=== PATIENT | female | born 1950 | race Caucasian/White ===

== ENCOUNTER → 2019-08-02 11:15 | Outpatient (CLI) | payer MEDICARE, OTHER, SELFPAY | PROVIDERS: PCP Nurse Practitioner Primary Care; Referring Provider Internal Medicine Critical Care Medicine; Visit Provider Internal Medicine Critical Care Medicine | DX: G47.33 Obstructive sleep apnea (adult) (pediatric) (principal) | CPT/HCPCS: 98960; G0463 ==

== ENCOUNTER → 2019-08-08 14:03 | Outpatient (CLI) | payer MEDICARE, OTHER, SELFPAY ==
[2015-07-22 16:10] VITALS: BMI 36.3
--- NOTE | 2019-08-08 14:04 | ECHOCS_ITS ---
Reason For Study: DYSPNEA Procedure This was a 2D Doppler, Color Flow transthoracic echocardiogram. The study was technically difficult. Contrast injection was performed. Exam performed in department. Left Ventricle Normal LV size. Left ventricular systolic function is normal. The estimated ejection fraction is 65 %. No evidence for diastolic dysfunction. No regional wall motion abnormalities noted. Right Ventricle Normal RV size. Normal systolic function. Atria Normal left atrium. Normal right atrium. Bubble contrast study negative for right to left interatrial shunt. Mitral Valve There is no mitral annular calcification. Normal mitral valve. Mild (1+) mitral valve insufficiency. Tricuspid Valve Normal tricuspid valve. Mild tricuspid valve insufficiency. Right ventricular systolic pressure estimated to be 43 mmHg. Aortic Valve Trisinus/trileaflet aortic valve. Mild focal aortic valve calcification. Pulmonic Valve The pulmonic valve is not well visualized. Great Vessels Normal sized aortic root. Pericardium/Pleural No pericardial effusion. Medication 22 gauge I.V. with prn adaptor inserted into right arm. Diluted definity 3.0ml given slow IV push to enhance endocardial definition. MMode/2D Measurements & Calculations LVIDd: 4.5 cm IVSd: 0.89 cm Ao root diam: 3.5 cm LVIDs: 2.9 cm LVPWd: 0.94 cm RVDd: 3.4 cm FS: 35.4 % LAV(MOD-bp): 36.6 ml LVAd ap4: 27.9 cm2 SV(MOD-sp4): 58.9 ml LAV(MOD-bp) Indexed: 19.5 ml/m2 EDV(MOD-sp4): 85.7 ml LAV(MOD-sp2): 27.3 ml EDV(sp4-el): 87.9 ml LAV(MOD-sp4): 42.2 ml LVAs ap4: 13.7 cm2 ESV(MOD-sp4): 26.8 ml ESV(sp4-el): 26.9 ml EF(MOD-sp4): 68.7 % EF(sp4-el): 69.4 % SV(sp4-el): 61.0 ml LA A4 area: 17.4 cm2 LA dimension(2D): 3.7 cm RA A4 area: 13.7 cm2 Time Measurements MV dec time: 0.29 sec Doppler Measurements & Calculations MV E max declan: 107.6 cm/sec Lat Peak E' Declan: 9.0 cm/sec Med Peak E' Declan: 9.2 cm/sec MV A max declan: 86.9 cm/sec E/E' lat: 11.9 E/E' med: 11.7 MV E/A: 1.2 Ao V2 max: 169.7 cm/sec LV V1 max: 112.2 cm/sec PA V2 max: 98.6 cm/sec Ao max P.5 mmHg LV V1 max P.0 mmHg TR max declan: 260.9 cm/sec TR max P.6 mmHg Interpretation Summary The study was technically difficult. Contrast injection was performed. Left ventricular systolic function is normal. The estimated ejection fraction is 65 %. Mild (1+) mitral valve insufficiency. Mild tricuspid valve insufficiency. Mild focal aortic valve calcification. Right ventricular systolic pressure estimated to be 43 mmHg. No evidence for diastolic dysfunction. Ordering Physician: Navin Blanca Referring Physician: CHINO HUI Performed By: Bianca Torres, STEPHANIECS, RVT
== END ==
PROVIDERS: PCP Nurse Practitioner Primary Care; Referring Provider Internal Medicine Critical Care Medicine; Visit Provider Internal Medicine Critical Care Medicine
DX: R60.0 Localized edema (principal)
CPT/HCPCS: 93306; Q9957; A4216; C8929

== ENCOUNTER 2019-10-16 09:15 | Outpatient (RCR) | payer MEDICARE, OTHER, SELFPAY ==
[2019-10-16 09:16] VITALS: BP 107/58; PULSE 73; RESP 20; TEMP 36.6; BMI 37.3
--- NOTE | 2019-10-16 12:00 | PCM.WC.HP ---
(1) Leg swelling Status: Chronic Current Visit: Yes Code(s): M79.89 - Other specified soft tissue disorders (2) Leg edema Status: Chronic Current Visit: Yes Code(s): R60.0 - Localized edema (3) Traumatic open wound of left lower leg Status: Chronic Current Visit: Yes Qualifiers: Encounter type: initial encounter Qualified Code(s): S81.802A - Unspecified open wound, left lower leg, initial encounter Code(s): S81.802A - Unspecified open wound, left lower leg, initial encounter (4) Obesity (BMI 30-39.9) Status: Chronic Current Visit: No Code(s): E66.9 - Obesity, unspecified (5) Hyperlipidemia Status: Chronic Current Visit: No Code(s): E78.5 - Hyperlipidemia, unspecified (6) Hypothyroidism Status: Chronic Current Visit: No Code(s): E03.9 - Hypothyroidism, unspecified (7) Fecal incontinence Status: Chronic Current Visit: No Code(s): R15.9 - Full incontinence of feces (8) Urinary incontinence Status: Chronic Current Visit: No Code(s): R32 - Unspecified urinary incontinence (9) Osteoarthritis Status: Chronic Current Visit: No Code(s): M19.90 - Unspecified osteoarthritis, unspecified site (10) Non-healing wound of left lower extremity Status: Chronic Current Visit: Yes Code(s): S81.802A - Unspecified open wound, left lower leg, initial encounter (11) GARY (obstructive sleep apnea) Status: Chronic Current Visit: No Code(s): G47.33 - Obstructive sleep apnea (adult) (pediatric) (12) Asthma Status: Chronic Current Visit: No Qualifiers: Code(s): J45.909 - Unspecified asthma, uncomplicated History of Present Illness Date of Service: 10/16/19 Chief Complaint: Chronic, nonhealing traumatic wound of the left lower extremity History of Wound: This is a 69-year-old female who was in her normal state of health until July 26, 2019. While transporting tess of hay, the patient sustained a penetrating injury to her distal left lower extremity with a weed stick. The penetrating injury failed to heal, and has persisted, despite treatment by her primary care physician. She has been treated by several courses of oral antibiotics, including Keflex, clindamycin, and another course of Keflex. She has used antibiotic ointment topically. Despite these measures, the patient's wound has persisted, and failed to heal. Despite several courses of antibiotics, cultures have not been obtained. The patient admits to chronic swelling in her lower extremities. She sleeps on a flat surface at night. She claims to be active. She has no history of thrombophlebitis. Past Medical History Past Medical History: Chronic Problems (Last Reviewed 07/25/19 @ 09:46 by Saige Carias) Leg swelling (Chronic) Leg edema (Chronic) Traumatic open wound of left lower leg (Chronic) Obesity (BMI 30-39.9) (Chronic) Hyperlipidemia (Chronic) Hypothyroidism (Chronic) Fecal incontinence (Chronic) Urinary incontinence (Chronic) Osteoarthritis (Chronic) Non-healing wound of left lower extremity (Chronic) GARY (obstructive sleep apnea) (Chronic) Edema (Chronic) Asthma (Chronic) Past Medical History: The patient denies a history of myocardial infarction, hypertension, diabetes mellitus, cerebrovascular accident, and renal disease. She does have a history of osteoarthritis, asthma, hyperlipidemia, hypothyroidism, obstructive sleep apnea, urinary incontinence, and fecal incontinence. Surgical History: cholecystectomy, - - Patient has a history of cholecystectomy. She is undergone left total knee replacement in the past. A right partial knee replacement has also been performed in the past. The patient is a G3, P3 Ab0. Allergies/Adverse Reactions: Allergies isoniazid Allergy (Verified 07/25/19 09:44) Rash sulfamethoxazole [From Bactrim] Allergy (Verified 07/25/19 09:44) Rash trimethoprim [From Bactrim] Allergy (Verified 07/25/19 09:44) Rash Home Medications: Ambulatory Orders Medication Instructions Recorded Gluc Joyce/Chondro Joyce A/Vit C/Mn 1 ea PO DAILY 07/15/15 [Glucosamine-Chondroitin Cap] Hydrochlorothiazide [Hctz] 25 mg PO DAILY 07/15/15 Levothyroxine [Synthroid] 125 mcg PO DAILY 07/15/15 Naproxen [Naprosyn] 250 mg PO BID 07/15/15 Aspirin E.C. [Ecotrin] 81 mg PO DAILY@0800 #0 07/24/15 Fish Oil/Dha/Epa [Fish Oil 1,200 1 ea PO DAILY #0 07/24/15 mg Fish Oil] [place]-3 Fatty Acids [Fish Oil] 1,200 mg PO DAILY #0 07/24/15 albuterol sulfate 90 mcg/actuation 2 puff INHALATION Q6H PRN 06/18/19 aerosol inhaler cinnamon bark 500 mg capsule 1,000 mg PO DAILY cap 07/25/19 fluticasone propionate 50 1 spray INTRANASAL DAILY 07/25/19 mcg/actuation nasal spray,suspension budesonide-formoterol HFA 160 2 inh INHALATION BID #30.6 g 10/05/19 mcg-4.5 mcg/actuation aerosol inhaler Social History: The patient is . She is a retired registered nurse. She denies the use of alcohol and tobacco products. Lives: Spouse/ Significant Other Smoking Status: Never smoker Tobacco Use: Non-smoker Alcohol: None Drugs: None Review of Systems Constitutional: Denies: Chills, Fever, Weight Change Eyes: Denies: Pain, Vision Change HEENT: Denies: Difficulty Hearing, Difficulty Swallowing, Sinus Congestion Cardiovascular: Denies: Chest Pain, Palpitations Respiratory: Denies: Cough, Shortness of Breath Gastrointestinal: Denies: Diarrhea, Nausea, Vomiting Genitourinary: Denies: Dysuria, Hematuria Endocrine: Denies: Heat/ Cold Intolerance, Polydipsia, Polyuria Hematologic/ Lymphatic: Denies: Easy Bruising, Easy Bleeding - Physical Exam Vital Signs Temp Pulse Resp BP 97.8 F 73 20 H 107/58 L 10/16/19 09:16 10/16/19 09:16 10/16/19 09:16 10/16/19 09:16 General: Alert, Oriented x3, Cooperative, No apparent distress, Well developed, Well nourished, - - Patient is mildly obese. HEENT: Atraumatic, PERRLA, EOMI, Normocephalic Oral: Moist Mucosa Neck: Supple, No JVD, Negative Carotid Bruits, Negative Hepatojugular Reflux, No Nodes, No Nuchal Rigidity, Trachea Midline Lungs: Clear to auscultation, Normal air movement, No rhonchi, No wheeze, No rales Cardiovascular: Regular rate, Regular Rhythm, Normal S1, Normal S2, No murmurs Abdomen: Soft, Non Tender, Non-Distended, Obese Extremities: No clubbing, No cyanosis, No Calf Tenderness, - - Slight swelling and edema is noted in the patient's lower extremities. A traumatic wound is noted on the left anterolateral tibial surface. Dimensions are documented elsewhere. Slight erythema surrounds the wound. Bioburden and nonviable tissue are present. Wound Measurements and Assessment WC - Nurse 1 - General Ulcer Measurement Start: 10/16/19 09:16 Freq: Status: Active Protocol: Activity Type Activity Date Activity User E-Sign Co-Sign Detail Recorded Client Recorded Date Recorded By Document 10/16/19 09:16 DL [id number] 10/16/19 09:35 DL 10/16/19 09:16 Wound Center Nurse 1 [Ulcer Assessment] #1 LLE Lat -Current Size (cm) - Length 0.5 -Current Size (cm) - Width 0.6 -Current Size (cm) - Depth 0.1 -Total Square Cm 0.30 -Photo Taken Yes -Classification - Thickness Unclassifiable (Eschar Covered ) -Exudate Amt None Present -Wound Margin Thickened -Granulation Amt None Present (0 %) -Necrosis Amt Small (1-33%) -Necrotic Tissue Type Adherent Slough -Structure Exposed N/A -Texture (Marilu-wound Skin Appearance) Localized Edema ,Scarring,Rash -Moisture (Marilu-wound Skin Appearance No Abnormality ) -Color (Marilu-wound Skin Appearance) No Abnormality, Rubor -Temperature (Marilu-wound Skin No Abnormality Appearance) (Pt Warm) -Tenderness on Palpation (Marilu-wound No Skin Appearance) -Ulcer Cleansing Rinsed/ Irrigated with Saline -Foul Odor after Cleansing No -Anesthetic Used 4% Lidocaine Solution [Edema Assessment] -Right Calf (cm) 40 -Right Ankle (cm) 24.5 -Left Calf (cm) 39.5 -Left Ankle (cm) 24 - Nurse 2 - General Ulcer CM Notes Start: 10/16/19 09:16 Freq: Status: Active Protocol: Activity Type Activity Date Activity User E-Sign Co-Sign Detail Recorded Client Recorded Date Recorded By Document 10/16/19 10:38 PL [id number] 10/16/19 10:39 PL 10/16/19 10:38 Wound Center Nurse 2 [Procedure/Treatment] #1 LLE Lat -Time 10:03 -Correct Patient Yes -Correct Side, Site, Position Yes -Correct Procedure Yes -Procedure Performed Yes -Type of Procedure Debridement -Clinical Debridement Subcutaneous -Tissue Removed Subcutaneous -Post Debridement (cm) - Length 0.5 -Post Debridement (cm) - Width 1 -Post Debridement (cm) - Depth 0.2 -Total Square (Post) (cm) 0.5 -Area of Debridement (cm) - Length 0.5 -Area of Debridement (cm) - Width 1 -Total Square (Area) (cm) 0.5 -Tunneling No -Undermining/Tunneling No -Wound/Ulcer Outcome Not Healed -Bioengineered Tissue No -Debridement - Subq, 1st 20sq cm Yes [See Physician Procedure note for Specifics] Pain Scale: 0-10 Numeric [Pain] -Is Patient Pain Free? Yes - Nurse 3 - General Ulcer D/C NN Start: 10/16/19 09:16 Freq: Status: Active Protocol: Activity Type Activity Date Activity User E-Sign Co-Sign Detail Recorded Client Recorded Date Recorded By Document 10/16/19 10:26 DL [id number] 10/16/19 10:33 DL 10/16/19 10:26 Wound Care Nurse 3 [Wound Dressing] #1 LLE Lat -Ulcer Cleansing Rinsed/ Irrigated with Saline -Foul Odor after Cleansing No -Primary Dressing Applied Aquacel AG 4x4 -Primary Dressing Covered/Secured Dry Gauze & with Roll Gauze, Secured with Tape -Aquacel AG 4x4 1 [Compression Applied] Left -Tubular Bandage Single Layer -Size of Tubigrip Used Size D -Size D ($) 1 [Post Procedure Tolerated] -Treatment Response Procedure Tolerated Well Pain Scale: 0-10 Numeric [Pain] -Is Patient Pain Free? Yes - Visit Discharge [Visit Discharge Information] -Discharge Condition Stable -Ambulatory Status Ambulatory -Transportation Private Auto Musculoskeletal: No Muscle Wasting Neurological: Cranial nerves II-XII grossly intact, Neuro grossly intact Psych/Mental Status: Normal Affect, Appropriate, Alert and oriented to time, place, person, mood and affect Debridement Note Post-Debridement Measurements/Treatment WC - Nurse 2 - General Ulcer CM Notes Start: 10/16/19 09:16 Freq: Status: Active Protocol: Activity Type Activity Date Activity User E-Sign Co-Sign Detail Recorded Client Recorded Date Recorded By Document 10/16/19 10:38 PL [id number] 10/16/19 10:39 PL 10/16/19 10:38 Wound Center Nurse 2 #1 LLE Lat -Time 10:03 -Correct Patient Yes -Correct Side, Site, Position Yes -Correct Procedure Yes -Procedure Performed Yes -Type of Procedure Debridement -Clinical Debridement Subcutaneous -Tissue Removed Subcutaneous -Post Debridement (cm) - Length 0.5 -Post Debridement (cm) - Width 1 -Post Debridement (cm) - Depth 0.2 -Total Square (Post) (cm) 0.5 -Area of Debridement (cm) - Length 0.5 -Area of Debridement (cm) - Width 1 -Total Square (Area) (cm) 0.5 -Tunneling No -Undermining/Tunneling No -Wound/Ulcer Outcome Not Healed -Bioengineered Tissue No -Debridement - Subq, 1st 20sq cm Yes Pain Scale: 0-10 Numeric Is Patient Pain Free? Yes WC - Nurse 3 - General Ulcer D/C NN Start: 10/16/19 09:16 Freq: Status: Active Protocol: Activity Type Activity Date Activity User E-Sign Co-Sign Detail Recorded Client Recorded Date Recorded By Document 10/16/19 10:26 DL [id number] 10/16/19 10:33 DL 10/16/19 10:26 Wound Care Nurse 3 #1 LLE Lat -Ulcer Cleansing Rinsed/ Irrigated with Saline -Foul Odor after Cleansing No -Primary Dressing Applied Aquacel AG 4x4 -Primary Dressing Covered/Secured with Dry Gauze & Roll Gauze, Secured with Tape -Aquacel AG 4x4 1 Left -Tubular Bandage Single Layer -Size of Tubigrip Used Size D -Size D ($) 1 Treatment Response Procedure Tolerated Well Pain Scale: 0-10 Numeric Is Patient Pain Free? Yes WC - Visit Discharge Discharge Condition Stable Ambulatory Status Ambulatory Transportation Private Auto Laterality: Left - Anterolateral tibial surface. Type of Debridement: Excisional debridement Anesthesia Used: 5% Lidocaine Gel Depth: Down to and including healthy tissue, in the subcutaneous layer Percentage of wound debrided: 100 Instrument Used: 3mm curette Tissue Removed: Bioburden and nonviable tissue Severity: Fat Layer Exposed Amount of bleeding with debridement: Mild Bleeding Controlled with: Compression and gauze Patient tolerated procedure well Following excisional debridement, swab cultures for both aerobic and anaerobic bacterial growth were obtained. Cultures were obtained due to the erythema about the wound itself, and concerns as to possible bacterial infection. Assessment/Plan Active Problems (Last Reviewed 07/25/19 @ 09:46 by Saige Carias) Leg swelling (Chronic) Leg edema (Chronic) Traumatic open wound of left lower leg (Chronic) Non-healing wound of left lower extremity (Chronic) Assessment: This is a 69-year-old female who presents with a traumatic wound on the edwige-lateral tibial surface of the left lower extremity. Her injury occurred on July 26, 2019, and has failed to heal, despite measures recommended by her primary care physician. She also has multiple pre-existing medical problems, which are discussed above. She has a history of chronic swelling and edema in her lower extremities as well. Plan: With respect to the chronic swelling and edema in the patient's lower extremities, conservative treatment measures are to be implemented. The patient sleeps on a flat mattress at night, a practice which is to be continued. Additionally, she is to elevate her legs during daytime hours as well. Leg elevation is to be to heart level, or higher. This is to be implemented as much as possible during the daytime. She has been advised to refrain from prolonged periods of idle sitting. Activity has been encouraged. Weight loss has also been recommended. We are to implement compression by means of Tubigrip's, which will be worn on a daily basis. The patient has had recent laboratory studies, which will be requested and obtained from [facility]. We will arrange for the patient undergo a noninvasive lower extremity arterial study, to assess arterial circulation in the lower extremities. Swab cultures have been obtained, and we will await results. Antibiotics will be prescribed, if appropriate. We are to implement the use of AquaCel Silver topically. This will be applied by the patient on a daily basis. The patient has been instructed in the appropriate means of application. The patient is to return in 1 week for reassessment. Serial debridements are anticipated. Patient is not a smoker. Influenza vaccine was not administered today. Patient stands 5 feet 2 inches tall. She weighs 197 pounds. Her BMI is 36, which places her in a class II obesity category. Weight loss has been recommended, and collaboration with her primary care physician has been advised.
== END 2019-10-22 23:59 ==
LOC: WC 09:15
PROVIDERS: PCP Nurse Practitioner Primary Care; Visit Provider Surgery
DX: S81.832A Puncture wound without foreign body, left lower leg, initial encounter (principal); W26.8XXA Contact with other sharp object(s), not elsewhere classified, initial encounter; Y93.89 Activity, other specified; Y92.9 Unspecified place or not applicable; G47.33 Obstructive sleep apnea (adult) (pediatric); J45.909 Unspecified asthma, uncomplicated; M19.90 Unspecified osteoarthritis, unspecified site; M79.89 Other specified soft tissue disorders; R60.0 Localized edema; E66.9 Obesity, unspecified; E78.5 Hyperlipidemia, unspecified; R15.9 Full incontinence of feces; E03.9 Hypothyroidism, unspecified; Z79.82 Long term (current) use of aspirin; Z79.899 Other long term (current) drug therapy; Z68.36 Body mass index [BMI] 36.0-36.9, adult
CPT/HCPCS: 11042; 87070; 87075; 87205; 99203; G0463

== ENCOUNTER 2019-11-06 13:00 | Outpatient (RCR) | payer MEDICARE, OTHER, SELFPAY ==
[2019-10-23 00:51] VITALS: BP 107/58; PULSE 73; RESP 20; TEMP 36.6
[2019-10-23 11:53] VITALS: BP 114/51; PULSE 80; RESP 16; TEMP 36.1; BMI 37.3
--- NOTE | 2019-10-23 12:15 | HP.PCM_ITS ---
(1) Leg swelling Status: Chronic Current Visit: Yes Code(s): M79.89 - Other specified soft tissue disorders (2) Leg edema Status: Chronic Current Visit: Yes Code(s): R60.0 - Localized edema (3) Traumatic open wound of left lower leg Status: Chronic Current Visit: Yes Qualifiers: Encounter type: subsequent encounter Qualified Code(s): S81.802D - Unspecified open wound, left lower leg, subsequent encounter Code(s): S81.802A - Unspecified open wound, left lower leg, initial encounter (4) Obesity (BMI 30-39.9) Status: Chronic Current Visit: No Code(s): E66.9 - Obesity, unspecified (5) Hyperlipidemia Status: Chronic Current Visit: No Code(s): E78.5 - Hyperlipidemia, unspecified (6) Hypothyroidism Status: Chronic Current Visit: No Code(s): E03.9 - Hypothyroidism, unspecified (7) Fecal incontinence Status: Chronic Current Visit: No Code(s): R15.9 - Full incontinence of feces (8) Urinary incontinence Status: Chronic Current Visit: No Code(s): R32 - Unspecified urinary incontinence (9) Osteoarthritis Status: Chronic Current Visit: No Code(s): M19.90 - Unspecified osteoarthritis, unspecified site (10) Non-healing wound of left lower extremity Status: Chronic Current Visit: Yes Code(s): S81.802A - Unspecified open wound, left lower leg, initial encounter (11) GARY (obstructive sleep apnea) Status: Chronic Current Visit: No Code(s): G47.33 - Obstructive sleep apnea (adult) (pediatric) (12) Edema Status: Chronic Current Visit: Yes Qualifiers: Code(s): R60.9 - Edema, unspecified (13) Asthma Status: Chronic Current Visit: No Qualifiers: Code(s): J45.909 - Unspecified asthma, uncomplicated History of Present Illness Date of Service: 10/23/19 Chief Complaint: Chronic, nonhealing traumatic wound of the left lower extremity History of Wound: This is a 69-year-old female who was in her normal state of health until July 26, 2019. While transporting tess of hay, the patient sustained a penetrating injury to her distal left lower extremity with a weed stick. The penetrating injury failed to heal, and has persisted, despite treatment by her primary care physician. She has been treated by several courses of oral antibiotics, including Keflex, clindamycin, and another course of Keflex. She has used antibiotic ointment topically. Despite these measures, the patient's wound has persisted, and failed to heal. Despite several courses of antibiotics, cultures have not been obtained. The patient admits to chronic swelling in her lower extremities. She sleeps on a flat surface at night. She claims to be active. She has no history of thrombophlebitis. Past Medical History Past Medical History: Chronic Problems (Last Reviewed 07/25/19 @ 09:46 by Saige Carias) Leg swelling (Chronic) Leg edema (Chronic) Traumatic open wound of left lower leg (Chronic) Obesity (BMI 30-39.9) (Chronic) Hyperlipidemia (Chronic) Hypothyroidism (Chronic) Fecal incontinence (Chronic) Urinary incontinence (Chronic) Osteoarthritis (Chronic) Non-healing wound of left lower extremity (Chronic) GARY (obstructive sleep apnea) (Chronic) Edema (Chronic) Asthma (Chronic) Surgical History: cholecystectomy, - - Patient has a history of cholecystectomy. She is undergone left total knee replacement in the past. A right partial knee replacement has also been performed in the past. The patient is a G3, P3 Ab0. Allergies/Adverse Reactions: Allergies isoniazid Allergy (Verified 07/25/19 09:44) Rash sulfamethoxazole [From Bactrim] Allergy (Verified 07/25/19 09:44) Rash trimethoprim [From Bactrim] Allergy (Verified 07/25/19 09:44) Rash Home Medications: Ambulatory Orders Medication Instructions Recorded Gluc Joyce/Chondro Joyce A/Vit C/Mn 1 ea PO DAILY 07/15/15 [Glucosamine-Chondroitin Cap] Hydrochlorothiazide [Hctz] 25 mg PO DAILY 07/15/15 Levothyroxine [Synthroid] 125 mcg PO DAILY 07/15/15 Naproxen [Naprosyn] 250 mg PO BID 07/15/15 Aspirin E.C. [Ecotrin] 81 mg PO DAILY@0800 #0 07/24/15 Fish Oil/Dha/Epa [Fish Oil 1,200 1 ea PO DAILY #0 07/24/15 mg Fish Oil] [place]-3 Fatty Acids [Fish Oil] 1,200 mg PO DAILY #0 07/24/15 albuterol sulfate 90 mcg/actuation 2 puff INHALATION Q6H PRN 06/18/19 aerosol inhaler cinnamon bark 500 mg capsule 1,000 mg PO DAILY cap 07/25/19 fluticasone propionate 50 1 spray INTRANASAL DAILY 07/25/19 mcg/actuation nasal spray,suspension budesonide-formoterol HFA 160 2 inh INHALATION BID #30.6 g 10/05/19 mcg-4.5 mcg/actuation aerosol inhaler Smoking Status: Never smoker Tobacco Use: Non-smoker Review of Systems Constitutional: Denies: Chills, Fever, Weight Change Eyes: Denies: Pain, Vision Change HEENT: Denies: Difficulty Hearing, Difficulty Swallowing, Sinus Congestion Cardiovascular: Denies: Chest Pain, Palpitations Respiratory: Denies: Cough, Shortness of Breath Gastrointestinal: Denies: Diarrhea, Nausea, Vomiting Genitourinary: Denies: Dysuria, Hematuria Endocrine: Denies: Heat/ Cold Intolerance, Polydipsia, Polyuria Hematologic/ Lymphatic: Denies: Easy Bruising, Easy Bleeding - Physical Exam Vital Signs Temp Pulse Resp BP 97 F L 80 16 114/51 L 10/23/19 11:53 10/23/19 11:53 10/23/19 11:53 10/23/19 11:53 General: Alert, Oriented x3, Cooperative, No apparent distress, Well developed, Well nourished HEENT: Atraumatic, PERRLA, EOMI, Normocephalic Oral: Moist Mucosa Neck: No JVD Lungs: Normal air movement Abdomen: Non-Distended Extremities: No clubbing, No cyanosis, No Calf Tenderness, - - Only minimal edema and swelling is noted in the left lower extremity. The wound on the anterolateral tibial surface of the left lower extremity appears to be totally healed and epithelialized. There is slight erythema in the area, suspected to be due to a reaction to topical products. It is noted that her recent wound cultures are negative. Skin: No breakdown Wound Measurements and Assessment WC - Nurse 1 - General Ulcer Measurement Start: 10/23/19 11:51 Freq: Status: Active Protocol: Activity Type Activity Date Activity User E-Sign Co-Sign Detail Recorded Client Recorded Date Recorded By Document 10/23/19 11:53 [facility] [id number] 10/23/19 12:00 [facility] 10/23/19 11:53 Wound Center Nurse 1 [Ulcer Assessment] #1 LLE Lat -Combined with other wound No -Current Size (cm) - Length 0.1 -Current Size (cm) - Width 0.1 -Current Size (cm) - Depth 0.1 -Total Square Cm 0.01 -Photo Taken No -Epithelialization None Present -Tunneling No -Undermining/Tunneling No -Circular Undermining No -Exudate Amt None Present -Wound Margin Distinct, Outline Attached -Granulation Amt None Present (0 %) -Slough/Fibrin Yes -Necrosis Amt Large (67-100%) -Necrotic Tissue Type Adherent Slough -Texture (Marilu-wound Skin Appearance) Assessed -Moisture ([place]u-wound Skin Appearance Assessed ) -Color ([place]ilu-wound Skin Appearance) Assessed -Temperature ([place]-wound Skin No Abnormality Appearance) (Pt Warm) -Tenderness on Palpation ([place]-wound No Skin Appearance) -Ulcer Cleansing Rinsed/ Irrigated with Saline -Foul Odor after Cleansing No -Anesthetic Used 4% Lidocaine Solution [Edema Assessment] -Lower Limb Edema Present Yes -Left Calf (cm) 38.6 -Left Ankle (cm) 23.6 Musculoskeletal: No Muscle Wasting Neurological: Cranial nerves II-XII grossly intact, Neuro grossly intact Psych/Mental Status: Normal Affect, Appropriate, Alert and oriented to time, place, person, mood and affect Debridement Note No debridement was completed today - There appears to be no open wound or ulceration at this time. Assessment/Plan Active Problems (Last Reviewed 07/25/19 @ 09:46 by Saige Carias) Leg swelling (Chronic) Leg edema (Chronic) Traumatic open wound of left lower leg (Chronic) Non-healing wound of left lower extremity (Chronic) Edema (Chronic) Assessment: This is a 69-year-old female who presented with a traumatic wound on the edwige-lateral tibial surface of the left lower extremity. Her injury occurred on July 26, 2019, and has failed to heal, despite measures recommended by her primary care physician. She also has multiple pre-existing medical problems, which are discussed above. She has a history of chronic swelling and edema in her lower extremities as well. Plan: With respect to the chronic swelling and edema in the patient's lower extremities, conservative treatment measures are to be continued. The patient sleeps on a flat mattress at night, a practice which is to be continued. Additionally, she is to elevate her legs during daytime hours as well. Leg elevation is to be to heart level, or higher. This is to be implemented as much as possible during the daytime. She has been advised to refrain from prolonged periods of idle sitting. Activity has been encouraged. Weight loss has also been recommended. We are to transition from the use of Tubigrip's to graduated compression stockings. The patient has been provided a prescription for graduated compression stockings of 15 to 20 mmHg compression, pending the results of her anticipated noninvasive lower extremity arterial study, to be completed soon. Swab cultures have been obtained, and and the results are negative for bacterial growth. Given that her wound appears to be totally healed and epithelialized, the patient is to maintain coverage of the site with dry gauze, changed daily, as a means of protection. The patient is to return in 2 weeks for reassessment. There is some mild erythema at the site, not suspected to be cellulitic in nature, and which appears to warrant reevaluation in 2 weeks prior to the patient's likely discharge. Patient is not a smoker. Influenza vaccine was not administered today. Patient stands 5 feet 2 inches tall. She weighs 197 pounds. Her BMI is 36, which places her in a class II ob esity category. Weight loss has been recommended, and collaboration with her primary care physician has been advised.
[2019-11-06 13:12] VITALS: BP 110/52; PULSE 69; RESP 20; TEMP 36.7; BMI 37.3
--- NOTE | 2019-11-06 13:46 | PCM.WC.HP ---
(1) Leg swelling Status: Chronic Current Visit: Yes Code(s): M79.89 - Other specified soft tissue disorders (2) Leg edema Status: Chronic Current Visit: Yes Code(s): R60.0 - Localized edema (3) Traumatic open wound of left lower leg Status: Chronic Current Visit: Yes Qualifiers: Encounter type: subsequent encounter Qualified Code(s): S81.802D - Unspecified open wound, left lower leg, subsequent encounter Code(s): S81.802A - Unspecified open wound, left lower leg, initial encounter (4) Obesity (BMI 30-39.9) Status: Chronic Current Visit: No Code(s): E66.9 - Obesity, unspecified (5) Hyperlipidemia Status: Chronic Current Visit: No Code(s): E78.5 - Hyperlipidemia, unspecified (6) Hypothyroidism Status: Chronic Current Visit: No Code(s): E03.9 - Hypothyroidism, unspecified (7) Fecal incontinence Status: Chronic Current Visit: No Code(s): R15.9 - Full incontinence of feces (8) Urinary incontinence Status: Chronic Current Visit: No Code(s): R32 - Unspecified urinary incontinence (9) Osteoarthritis Status: Chronic Current Visit: No Code(s): M19.90 - Unspecified osteoarthritis, unspecified site (10) Non-healing wound of left lower extremity Status: Chronic Current Visit: Yes Code(s): S81.802A - Unspecified open wound, left lower leg, initial encounter (11) GARY (obstructive sleep apnea) Status: Chronic Current Visit: No Code(s): G47.33 - Obstructive sleep apnea (adult) (pediatric) (12) Edema Status: Chronic Current Visit: Yes Qualifiers: Code(s): R60.9 - Edema, unspecified (13) Asthma Status: Chronic Current Visit: No Qualifiers: Code(s): J45.909 - Unspecified asthma, uncomplicated History of Present Illness Date of Service: 11/06/19 Chief Complaint: Chronic, nonhealing traumatic wound of the left lower extremity History of Wound: This is a 69-year-old female who was in her normal state of health until July 26, 2019. While transporting tess of hay, the patient sustained a penetrating injury to her distal left lower extremity with a weed stick. The penetrating injury failed to heal, and has persisted, despite treatment by her primary care physician. She has been treated by several courses of oral antibiotics, including Keflex, clindamycin, and another course of Keflex. She has used antibiotic ointment topically. Despite these measures, the patient's wound has persisted, and failed to heal. Despite several courses of antibiotics, cultures have not been obtained. The patient admits to chronic swelling in her lower extremities. She sleeps on a flat surface at night. She claims to be active. She has no history of thrombophlebitis. Past Medical History Past Medical History: Chronic Problems (Last Reviewed 10/31/19 @ 12:57 by Kathryn Altamirano LATHE WINDER, LATHE WINDER-C) Leg swelling (Chronic) Leg edema (Chronic) Traumatic open wound of left lower leg (Chronic) Obesity (BMI 30-39.9) (Chronic) Hyperlipidemia (Chronic) Hypothyroidism (Chronic) Fecal incontinence (Chronic) Urinary incontinence (Chronic) Osteoarthritis (Chronic) Non-healing wound of left lower extremity (Chronic) GARY (obstructive sleep apnea) (Chronic) Edema (Chronic) Asthma (Chronic) Surgical History: cholecystectomy, - - Patient has a history of cholecystectomy. She is undergone left total knee replacement in the past. A right partial knee replacement has also been performed in the past. The patient is a G3, P3 Ab0. Allergies/Adverse Reactions: Allergies isoniazid Allergy (Verified 10/31/19 12:47) Rash sulfamethoxazole [From Bactrim] Allergy (Verified 10/31/19 12:47) Rash trimethoprim [From Bactrim] Allergy (Verified 10/31/19 12:47) Rash Home Medications: Ambulatory Orders Medication Instructions Recorded Gluc Joyce/Chondro Joyce A/Vit C/Mn 1 ea PO DAILY 07/15/15 [Glucosamine-Chondroitin Cap] Hydrochlorothiazide [Hctz] 25 mg PO DAILY 07/15/15 Levothyroxine [Synthroid] 125 mcg PO DAILY 07/15/15 Naproxen [Naprosyn] 250 mg PO BID 07/15/15 Aspirin E.C. [Ecotrin] 81 mg PO DAILY@0800 #0 07/24/15 Fish Oil/Dha/Epa [Fish Oil 1,200 1 ea PO DAILY #0 07/24/15 mg Fish Oil] [place]-3 Fatty Acids [Fish Oil] 1,200 mg PO DAILY #0 07/24/15 albuterol sulfate 90 mcg/actuation 2 puff INHALATION Q6H PRN 06/18/19 aerosol inhaler cinnamon bark 500 mg capsule 1,000 mg PO DAILY cap 07/25/19 fluticasone propionate 50 1 spray INTRANASAL DAILY 07/25/19 mcg/actuation nasal spray,suspension fluticasone 500 mcg-salmeterol 50 1 inh INHALATION BID #60 ea 10/31/19 mcg/dose blistr powdr for inhalation spacer See Rx Instructions .ROUTE 11/02/19 .MEDSUPPLY #1 ea Smoking Status: Never smoker Tobacco Use: Non-smoker Review of Systems Constitutional: Denies: Chills, Fever, Weight Change Eyes: Denies: Pain, Vision Change HEENT: Denies: Difficulty Hearing, Difficulty Swallowing, Sinus Congestion Cardiovascular: Denies: Chest Pain, Palpitations Respiratory: Denies: Cough, Shortness of Breath Gastrointestinal: Denies: Diarrhea, Nausea, Vomiting Genitourinary: Denies: Dysuria, Hematuria Endocrine: Denies: Heat/ Cold Intolerance, Polydipsia, Polyuria Hematologic/ Lymphatic: Denies: Easy Bruising, Easy Bleeding - Physical Exam Vital Signs Temp Pulse Resp BP 98.1 F 69 20 H 110/52 L 11/06/19 13:12 11/06/19 13:12 11/06/19 13:12 11/06/19 13:12 General: Alert, Oriented x3, Cooperative, No apparent distress, Well developed, Well nourished HEENT: Atraumatic, PERRLA, EOMI, Normocephalic Oral: Moist Mucosa Neck: No JVD Lungs: Normal air movement Abdomen: Non-Distended Extremities: No clubbing, No cyanosis, No edema, No Calf Tenderness, - - The wound on the anterolateral aspect of the left tibial surface is now completely healed and epithelialized. There are no meeting wounds or ulcerations. Skin: No rashes, No breakdown Wound Measurements and Assessment WC - Nurse 1 - General Ulcer Measurement Start: 10/23/19 11:51 Freq: Status: Active Protocol: Activity Type Activity Date Activity User E-Sign Co-Sign Detail Recorded Client Recorded Date Recorded By Document 11/06/19 13:12 DL [id number] 11/06/19 13:21 DL 11/06/19 13:12 Wound Center Nurse 1 [Ulcer Assessment] #1 LLE Lat -Current Size (cm) - Length 0 -Current Size (cm) - Width 0 -Current Size (cm) - Depth 0 -Total Square Cm 0 -Photo Taken Yes -Exudate Amt None Present -Wound Margin Flat & Intact -Granulation Amt Large (67-100%) -Granulation Quality [place] -Necrosis Amt None Present (0 %) -Structure Exposed N/A -Texture (Marilu-wound Skin Appearance) Scarring -Moisture ([place]-wound Skin Appearance No Abnormality ) -Color ([place]u-wound Skin Appearance) No Abnormality -Temperature ([place]-wound Skin No Abnormality Appearance) (Pt Warm) -Tenderness on Palpation ([place]il[place]-wound No Skin Appearance) -Ulcer Cleansing Rinsed/ Irrigated with Saline -Foul Odor after Cleansing No [Edema Assessment] -Left Calf (cm) 38 -Left Ankle (cm) 21.5 Musculoskeletal: No Muscle Wasting Neurological: Cranial nerves II-XII grossly intact, Neuro grossly intact Psych/Mental Status: Normal Affect, Appropriate, Alert and oriented to time, place, person, mood and affect Debridement Note Post-Debridement Measurements/Treatment - Nurse 3 - General Ulcer D/C NN Start: 10/23/19 11:51 Freq: Status: Active Protocol: Activity Type Activity Date Activity User E-Sign Co-Sign Detail Recorded Client Recorded Date Recorded By Document 10/23/19 12:20 [facility] [id number] 10/23/19 12:21 [facility] 10/23/19 12:20 Wound Care Nurse 3 #1 LLE Lat -Primary Dressing Covered/Secured with Dry Gauze Left -Other used pt's own tubigrip Treatment Response Procedure Tolerated Well Pain Scale: 0-10 Numeric Is Patient Pain Free? Yes WC - Visit Discharge Discharge Condition Stable Ambulatory Status Ambulatory Transportation Private Auto No debridement was completed today - The patient's wound is now completely healed. Assessment/Plan Active Problems (Last Reviewed 10/31/19 @ 12:57 by Kathryn Altamirano LATHE WINDER, LATHE WINDER-C) Leg swelling (Chronic) Leg edema (Chronic) Traumatic open wound of left lower leg (Chronic) Non-healing wound of left lower extremity (Chronic) Edema (Chronic) Assessment: This is a 69-year-old female who presented with a traumatic wound on the edwige-lateral tibial surface of the left lower extremity. Her injury occurred on July 26, 2019, and has failed to heal, despite measures recommended by her primary care physician. She also has multiple pre-existing medical problems, which are discussed above. She has a history of chronic swelling and edema in her lower extremities as well. Plan: The patient's left lower extremity wound is now completely healed and epithelialized. Therefore, she is to be discharged. With respect to the chronic swelling and edema in the patient's lower extremities, conservative treatment measures are to be continued. The patient sleeps on a flat mattress at night, a practice which is to be continued. Additionally, she is to elevate her legs during daytime hours as well. Leg elevation is to be to heart level, or higher. This is to be implemented as much as possible during the daytime. She has been advised to refrain from prolonged periods of idle sitting. Activity has been encouraged. Weight loss has also been recommended. She has procured graduated compression stockings, which she is to continue wearing on a daily basis. These are of 15 to 20 mmHg compression. The patient is to follow-up henceforth on an as-needed basis. Patient is not a smoker. Influenza vaccine was not administered today. Patient stands 5 feet 2 inches tall. She weighs 197 pounds. Her BMI is 36, which places her in a class II obesity category. Weight loss has been recommended, and collaboration with her primary care physician has been advised.
== END 2019-11-06 13:48 | disposition home or self-care (01) ==
LOC: WC 13:00
PROVIDERS: PCP Nurse Practitioner Primary Care; Visit Provider Surgery
DX: Z09 Encounter for follow-up examination after completed treatment for conditions other than malignant neoplasm (principal); M79.89 Other specified soft tissue disorders; R60.0 Localized edema; E78.5 Hyperlipidemia, unspecified; E03.9 Hypothyroidism, unspecified; M19.90 Unspecified osteoarthritis, unspecified site; R15.9 Full incontinence of feces; R32 Unspecified urinary incontinence; J45.909 Unspecified asthma, uncomplicated; G47.33 Obstructive sleep apnea (adult) (pediatric); E66.9 Obesity, unspecified; Z79.82 Long term (current) use of aspirin; Z79.51 Long term (current) use of inhaled steroids; Z79.1 Long term (current) use of non-steroidal anti-inflammatories (NSAID); Z79.899 Other long term (current) drug therapy; Z96.653 Presence of artificial knee joint, bilateral
CPT/HCPCS: 99212; G0463

== ENCOUNTER → 2019-11-22 11:15 | Outpatient (CLI) | payer MEDICARE, OTHER, SELFPAY ==
[2019-10-31 12:49] VITALS: BMI 37.3
[2019-11-06 13:12] VITALS: BMI 37.3
[2019-11-22 11:15] VITALS: PULSE 108; PULSE 109; PULSE 111; PULSE 113; PULSE 63; PULSE 68; PULSE 95; O2SAT 94; O2SAT 95; O2SAT 96
--- NOTE | 2019-11-22 15:48 | PCM.PSN.6M ---
PSN 6 Minute Walk Test - 6 Minute Walk Test 6 Minute Walk Test: 6 Minute Walk Test PSN:6-Minute Walk Test Start: 11/22/19 11:46 Freq: Status: Active Protocol: RESP.6MINW Document 11/22/19 11:15 [facility] (Rec: 11/22/19 11:50 [facility] [id number]) 6 Minute Walk Test Date Performed 11/22/19 Time Performed 11:15 Height 5 ft 1 in Weight: 89.358 kg Weight in Pounds 197.[address]: Shahab Assistive device used: None Pre-test Oxygen Delivery Method Room Air Pulse Ox (%) 96 Pulse Rate (60-100 beats/min) 63 Dyspnea Clifton Scale (0-10) 0 Exertion Clifton Scale (6-20) 6 1st minute Oxygen Delivery Method Room Air Pulse Ox (%) 95 Pulse Rate (60-100 beats/min) 95 2nd minute Oxygen Delivery Method Room Air Pulse Ox (%) 95 Pulse Rate (60-100 beats/min) 109 H 3rd minute Oxygen Delivery Method Room Air Pulse Ox (%) 95 Pulse Rate (60-100 beats/min) 113 H 4th minute Oxygen Delivery Method Room Air Pulse Ox (%) 95 Pulse Rate (60-100 beats/min) 111 H 5th minute Oxygen Delivery Method Room Air Pulse Ox (%) 96 Pulse Rate (60-100 beats/min) 111 H 6th minute Oxygen Delivery Method Room Air Pulse Ox (%) 94 Pulse Rate (60-100 beats/min) 108 H Dyspnea Clifton Scale (0-10) 3 Exertion Clifton Scale (6-20) 12 Post-test Oxygen Delivery Method Room Air Pulse Ox (%) 95 Pulse Rate (60-100 beats/min) 68 Full Laps Walked 20 Partial Lap, Number of Tiles Walked 40 Total Distance Walked (ft) 1220 - Interpretation Interpretation: The patient was able to ambulate 1220 feet over the course of 6 minutes on room air with no assistive devices or breaks. The patient did have some tachycardia with a peak heart rate of 113 bpm, but no significant desaturations were noted. These findings are consistent with a cardiovascular limitation exercise tolerance. - Recommendations Recommendations: No supplemental oxygen is indicated at this time.
== END ==
PROVIDERS: PCP Nurse Practitioner Primary Care; Referring Provider Nurse Practitioner Acute Care; Visit Provider Nurse Practitioner Acute Care
DX: R06.02 Shortness of breath (principal)
CPT/HCPCS: 94618

== ENCOUNTER 2020-04-16 11:12 | Outpatient (RCR) | payer MEDICARE, OTHER, SELFPAY ==
[2020-01-24 13:56] VITALS: BMI 36.6
== END 2020-04-16 23:59 ==
LOC: IMMUN 11:12
PROVIDERS: PCP Nurse Practitioner Primary Care; Referring Provider Family Medicine; Visit Provider Family Medicine
DX: Z23 Encounter for immunization (principal)
CPT/HCPCS: 0011A; 0012A; 91301

== ENCOUNTER 2021-04-30 13:12 | Outpatient (CLI) | payer MEDICARE, OTHER, SELFPAY ==
[2021-04-30 13:00] VITALS: PULSE 105; PULSE 116; PULSE 120; PULSE 122; PULSE 126; PULSE 90; PULSE 96; O2SAT 95; O2SAT 96; O2SAT 97
--- NOTE | 2021-05-01 13:29 | WT_ITS ---
PSN 6 Minute Walk Test 6 Minute Walk Test 6 Minute Walk Test: 6 Minute Walk Test PSN:6-Minute Walk Test Start: 04/30/21 13:29 Freq: Status: Active Protocol: RESP.6MINW Document 04/30/21 13:00 EW (Rec: 04/30/21 13:31 EW [id number]) 6 Minute Walk Test Date Performed 04/30/21 Time Performed 13:00 Height 5 ft 1 in Weight: 88.451 kg Weight in Pounds 195.[address]: Kathryn Altamirano [employer] Assistive device used: None Pre-test Oxygen Delivery Method Room Air Pulse Ox (%) 96 Pulse Rate (60-100 beats/min) 90 Dyspnea Clifton Scale (0-10) 1 Exertion Clifton Scale (6-20) 6 1st minute Oxygen Delivery Method Room Air Pulse Ox (%) 95 Pulse Rate (60-100 beats/min) 120 H 2nd minute Oxygen Delivery Method Room Air Pulse Ox (%) 96 Pulse Rate (60-100 beats/min) 116 H 3rd minute Oxygen Delivery Method Room Air Pulse Ox (%) 97 Pulse Rate (60-100 beats/min) 122 H 4th minute Oxygen Delivery Method Room Air Pulse Ox (%) 96 Pulse Rate (60-100 beats/min) 126 H 5th minute Oxygen Delivery Method Room Air Pulse Ox (%) 95 Pulse Rate (60-100 beats/min) 96 6th minute Oxygen Delivery Method Room Air Pulse Ox (%) 96 Pulse Rate (60-100 beats/min) 116 H Post-test Oxygen Delivery Method Room Air Pulse Ox (%) 96 Pulse Rate (60-100 beats/min) 105 H Dyspnea Clifton Scale (0-10) 3 Exertion Clifton Scale (6-20) 11 Full Laps Walked 19 Partial Lap, Number of Tiles Walked 0 Total Distance Walked (ft) 1121 Interpretation Interpretation: The patient ambulated 1121 feet over the course of 6 minutes beginning on room air without assistive devices. Pretesting oxygen saturation was noted to be 96% on room air. With ambulation, the ana luisa oxygen saturation was 95%. There was no significant exertional oxygen desaturation. Recommendations Recommendations: There is no indication for the use of supplemental oxygen at this time.
== END 2021-04-30 23:59 | disposition home or self-care (01) ==
LOC: PSN 13:15
PROVIDERS: PCP Nurse Practitioner Primary Care; Referring Provider Nurse Practitioner Acute Care; Visit Provider Nurse Practitioner Acute Care
DX: R06.02 Shortness of breath (principal)
CPT/HCPCS: 94618

== ENCOUNTER → 2022-08-11 | Outpatient (CLI) | payer MEDICARE, OTHER, SELFPAY | END | disposition home or self-care (01) | LOC: SL 20:45 | PROVIDERS: PCP Nurse Practitioner Primary Care; Referring Provider Internal Medicine Critical Care Medicine; Visit Provider Internal Medicine Critical Care Medicine | DX: G47.33 Obstructive sleep apnea (adult) (pediatric) (principal) | CPT/HCPCS: 95811; J7120 ==

== ENCOUNTER → 2024-06-13 | Outpatient (CLI) | payer MEDICARE, OTHER, SELFPAY | END | disposition home or self-care (01) | LOC: PSN 10:49 | PROVIDERS: PCP Nurse Practitioner Primary Care; Referring Provider Nurse Practitioner Acute Care; Visit Provider Nurse Practitioner Acute Care | DX: R06.02 Shortness of breath (principal) | CPT/HCPCS: 94060; 94726; 94729 ==

== ENCOUNTER → 2024-06-19 | Outpatient (CLI) | payer MEDICARE, OTHER, SELFPAY ==
--- NOTE | 2024-06-19 10:59 | ECHOD_ITS ---
Reason For Study Reason For Study: SOB Procedure This was a 2D Doppler, Color Flow transthoracic echocardiogram. Exam performed in department. Left Ventricle Normal LV size. The estimated ejection fraction is 70 %. No evidence for diastolic dysfunction. No regional wall motion abnormalities noted. Right Ventricle Normal RV size. Normal systolic function. Atria The left and right atria are normal. No doppler evidence for ASD. Mitral Valve There is mild to moderate mitral annular calcification. There is no mitral valve stenosis. Trivial mitral valve insufficiency. Tricuspid Valve There is no tricuspid stenosis. Trivial tricuspid valve insufficiency. Unable to estimate RV systolic pressure due to insufficient tricuspid regurgitant envelope. Aortic Valve Trisinus/trileaflet aortic valve. Mild aortic stenosis. No aortic valve insufficiency. Pulmonic Valve There is no pulmonic valvular stenosis. Trivial pulmonic valve insufficiency. Great Vessels Normal sized aortic root. Pericardium/Pleural No pericardial effusion. MMode/2D Measurements & Calculations LVIDd: 4.6 cm IVSd: 1.0 cm LVOT diam: 2.0 cm LVIDs: 2.4 cm LVPWd: 0.94 cm LVOT area: 3.0 cm2 RVDd: 3.2 cm FS: 47.4 % Ao root diam: 3.1 cm LAV(MOD-bp): 49.7 ml LVAd ap4: 20.0 cm2 LAV(MOD-bp) Indexed: 28.0 ml/m2 LVLd ap4: 6.8 cm LAV(MOD-sp2): 37.8 ml EDV(MOD-sp4): 48.4 ml LAV(MOD-sp4): 60.5 ml EDV(sp4-el): 49.6 ml LVAs ap4: 10.0 cm2 LVLs ap4: 5.5 cm ESV(MOD-sp4): 16.0 ml ESV(sp4-el): 15.7 ml EF(MOD-sp4): 66.9 % EF(sp4-el): 68.4 % SV(MOD-sp4): 32.4 ml SV(sp4-el): 33.9 ml LA A4 area: 19.9 cm2 SI(MOD-sp4): 18.2 ml/m2 LA dimension(2D): 4.0 cm RA A4 area: 13.2 cm2 TAPSE: 2.1 cm Time Measurements MV dec time: 0.25 sec Doppler Measurements & Calculations MV E max declan: 94.2 cm/sec Lat Peak E' Declan: 9.9 cm/sec Med Peak E' Declan: 8.6 cm/sec MV A max declan: 102.7 cm/sec E/E' lat: 9.5 E/E' med: 11.0 MV E/A: 0.92 Ao V2 max: 205.3 cm/sec LV V1 max: 128.6 cm/sec MV dec slope: 374.3 cm/sec2 Ao max P.9 mmHg LV V1 max P.6 mmHg Ao V2 mean: 143.6 cm/sec LV V1 mean P.3 mmHg Ao mean P.3 mmHg LV V1 mean: 84.3 cm/sec Ao V2 VTI: 46.6 cm LV V1 VTI: 30.2 cm AV (velocity ratio): 0.65 ALONA(I,D): 1.9 cm2 ALONA(V,D): 1.9 cm2 SV(LVOT): 90.8 ml PA V2 max: 108.1 cm/sec TR max declan: 232.5 cm/sec TR max P.6 mmHg ECHO/Echo Complete Interpretation Summary The estimated ejection fraction is 70 %. No evidence for diastolic dysfunction. Trivial mitral valve insufficiency. Mild aortic stenosis. Ordering Physician: Kathryn Altamirano Referring Physician: Saige Dexter Performed By: Flora Abreu, RDCS, RVT
[2024-06-19 12:06] VITALS: PULSE 100; PULSE 109; PULSE 115; PULSE 124; PULSE 126; PULSE 128; PULSE 67; PULSE 68; O2SAT 97; O2SAT 98; O2SAT 99
--- NOTE | 2024-06-22 09:18 | WT_ITS ---
PSN 6 Minute Walk Test 6 Minute Walk Test 6 Minute Walk Test: 6 Minute Walk Test PSN:6-Minute Walk Test Start: 06/19/24 12:06 Freq: Status: Active Protocol: [id number] Document 06/19/24 12:06 EDELANICETO (Rec: 06/19/24 12:09 EDELON [id number]) 6 Minute Walk Test Date Performed 06/19/24 Time Performed 12:00 Height 5 ft Weight: 178 lb Weight in Pounds 178.[address]: Kathryn Altamirano POOL TECHNICIAN Assistive device None used: Pre-test Oxygen Delivery Room Air Method Pulse Ox (%) 98 Pulse Rate (60-100 68 beats/min) Dyspnea Clifton Scale ( 0 0-10) Exertion Clifton Scale 6 (6-20) 1st minute Oxygen Delivery Room Air Method Pulse Ox (%) 97 Pulse Rate (60-100 100 beats/min) 2nd minute Oxygen Delivery Room Air Method Pulse Ox (%) 97 Pulse Rate (60-100 109 H beats/min) 3rd minute Oxygen Delivery Room Air Method Pulse Ox (%) 97 Pulse Rate (60-100 115 H beats/min) 4th minute Oxygen Delivery Room Air Method Pulse Ox (%) 97 Pulse Rate (60-100 124 H beats/min) 5th minute Oxygen Delivery Room Air Method Pulse Ox (%) 97 Pulse Rate (60-100 126 H beats/min) 6th minute Oxygen Delivery Room Air Method Pulse Ox (%) 97 Pulse Rate (60-100 128 H beats/min) Dyspnea Clifton Scale ( 4 0-10) Exertion Clifton Scale 14 (6-20) Post-test Oxygen Delivery Room Air Method Pulse Ox (%) 99 Pulse Rate (60-100 67 beats/min) Full Laps Walked 13 Partial Lap, Number 0 of Tiles Walked Total Distance 767 Walked (ft) Interpretation Interpretation: The patient ambulated 767 feet over the course of 6 minutes beginning on room air without assistive devices. Pretesting oxygen saturation was noted to be 98% on room air. With ambulation, the ana luisa oxygen saturation was 97%. Although there was evidence of impaired walk distance, there was no significant exertional oxygen desaturation. Recommendations Recommendations: There is no indication for the use of supplemental oxygen at this time.
== END | disposition home or self-care (01) ==
PROVIDERS: PCP Nurse Practitioner Primary Care; Referring Provider Nurse Practitioner Acute Care; Visit Provider Nurse Practitioner Acute Care
DX: R06.02 Shortness of breath (principal)
CPT/HCPCS: 93306; 94618

== ENCOUNTER 2024-09-13 16:53 | Emergency (ER) | payer MEDICARE, OTHER, SELFPAY ==
[2024-09-13 16:54] VITALS: BP 157/64; PULSE 66; RESP 18; TEMP 37; O2SAT 98; BMI 36.7
--- NOTE | 2024-09-13 17:12 | ED.VIS.LOWEX ---
HPI History of Present Illness Chief Complaint: Lower Extremity Injury Narrative Narrative: 74-year-old female past medical history of chronic lymphedema, wears compression stockings, has a brace on her left lower extremity presents with swelling and redness of her right lower extremity that started at 5 PM yesterday, approximately 24 hours ago. She states that there was a patch on her medial right knee that had improved. She had taken off her compression stockings, and noticed redness to the lower portion of her right lower extremity. She relates history that she has been on prednisone for the last 20 days and is currently taking her tapering dose of 40 mg. She was put on prednisone and steroids for hives. Initially she had taken a Medrol Dosepak. The hives had never gone to her lower extremity. Of most significance, she is here because she saw dermatology, Dr. Reymundo Sutherland today, who sent her to the emergency department for rule out DVT as it was not thought that this was cellulitis and probably more lymphedema and skin changes. She is here for an ultrasound of her right lower extremity to rule out DVT. 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 History of elbow fracture GARY on CPAP Left Nare Varicose Vein Hypothyroid Cardiac arrhythmia Asthma Home Medications Medication Instructions Recorded Last Taken Type obskeccjvls-qbjdcvwwu-kde C-Mn 500 1 ea PO DAILY 07/15/15 Unknown History mg-400 mg capsule levothyroxine 125 mcg tablet 125 mcg PO DAILY 07/15/15 07/22/15 08:00 History 125 MCG aspirin 81 mg tablet,delayed 81 mg PO DAILY@0800 ##0 07/24/15 Unknown Rx release fish oil-dha-epa 1,200 mg-144 1 ea PO DAILY ##0 07/24/15 Unknown Rx mg-216 mg capsule cinnamon bark 500 mg capsule 1,000 mg PO DAILY 07/25/19 Unknown History (Cinnamon) fluticasone propionate 50 1 spray intranasal DAILY 07/25/19 Unknown History mcg/actuation nasal spray,suspension (Flonase Allergy Relief) spacer #1 ea 11/02/19 Unknown Rx coenzyme Q10 75 mg capsule (Ultra 75 mg PO DAILY 01/24/20 Unknown History CoQ10) red yeast rice 600 mg capsule 600 mg PO DAILY 01/24/20 Unknown History fexofenadine 180 mg tablet 180 mg PO DAILY 03/24/21 Unknown History magnesium oxide 500 mg capsule 500 mg PO DAILY 03/24/21 Unknown History cholestyramine-aspartame 4 gram 1 ea PO DAILY 09/30/21 Unknown History oral powder for susp in a packet (Prevalite) furosemide 40 mg tablet 60 mg PO DAILY 09/30/21 Unknown History isosorbide mononitrate 60 mg 60 mg PO DAILY 09/30/21 Unknown History tablet,extended release 24 hr H & H clear skin vitamins PO QDAY 05/16/24 Unknown History acetaminophen 500 mg tablet 1,000 mg PO Q6H PRN 05/16/24 Unknown History atorvastatin 10 mg tablet 10 mg PO 4XW 05/16/24 Unknown History clobetasol 0.05 % topical cream 1 applic topical QDAY PRN 05/16/24 Unknown History diphenhydramine HCl 25 mg tablet 25 mg PO QHS PRN 05/16/24 Unknown History (Benadryl Allergy) ferrous sulfate 325 mg (65 mg 325 mg PO QDAY 05/16/24 Unknown History iron) tablet loperamide 2 mg-simethicone 125 mg 1 tab PO Q2H PRN 05/16/24 Unknown History tablet methocarbamol 500 mg tablet 250 - 500 mg PO TID PRN muscle 05/16/24 Unknown History spasm naproxen 250 mg tablet 250 mg PO BID PRN 05/16/24 Unknown History triamcinolone acetonide 0.1 % 1 applic topical QDAY PRN 05/16/24 Unknown History topical cream Allergy/AdvReac Type Severity Reaction Status Date / Time isoniazid Allergy Rash Verified 09/13/24 16:55 sulfamethoxazole (From Allergy Rash Verified 09/13/24 16:55 Bactrim) trimethoprim (From Bactrim) Allergy Rash Verified 09/13/24 16:55 Family History Mother Dementia Brother Diabetes Heart disease Hypertension CVA (cerebral vascular accident) Surgical History History of knee replacement History of cholecystectomy Social History Smoking Status: Never smoker alcohol intake: never ROS ROS ED ROS Narrative No fevers or chills, positive swelling and redness to right lower extremity mainly below knee. No chest pain or shortness of breath, no fevers or chills. EXAM Physical Exam Narrative Exam Narrative: Afebrile. Vital signs noted. Nontoxic-appearing. Cardiovascular examination reveals regular rate and rhythm. Lungs clear to auscultation bilaterally. Abdomen soft nontender. Inspection of the right lower extremity does show petechiae and patches of nonblanching petechial erythema throughout her right lower extremity. There is mild swelling noted of the bilateral lower extremities. Left ankle is in a brace. Palpable dorsalis pedis pulse, right. Const Vital Signs: 09/13/24 16:54 Temperature 98.6 F Temperature Source Oral Pulse Rate 66 Respiratory Rate 18 Blood Pressure 157/64 H Blood Pressure Mean 95 Pulse Ox 98 Oxygen Delivery Method Room Air MDM MDM MDM Narrative Medical decision making narrative: The differential diagnosis does include but not limited to petechiae versus cellulitis versus lymphedema skin changes versus DVT. I did review the after visit summary from dermatology. I agree that this is unlikely cellulitis or infectious as it is more petechial in clusters and probably from lymphedema. As she is here for rule out DVT, ultrasound was obtained of the right lower extremity. I reviewed the radiology report and there is no evidence of DVT. I do not feel that she requires blood thinners. Additionally, I do not feel antibiotics are indicated as I feel they may cause more resistance than be more problematic for her. She will follow-up with dermatology and her primary care provider as soon as possible. I did review her prior problem list and she has had leg swelling and leg edema in the past so I do feel it is probably related more to chronic lymphedema. Return instructions to the emergency department were reviewed. Disposition is discharged home in stable condition. History & Record Review Discussion w/independent historian: Patient Radiography Diagnostic Testing: Clinical Impression(s) from Imaging Studies Venous Duplex 09/13/24 17:15 IMPRESSION: No evidence of DVT. Reading Location: [id number] Discharge Plan Triage Chief Complaint: Lower Extremity Injury ED Provider: Jon Brownlee Dx/Rx/DC Orders Clinical Impression: Leg swelling, Leg edema, Petechial rash Instructions: ED Lymphedema, ED Petechiae Prescriptions: No Action fluticasone propionate [Flonase Allergy Relief] 50 mcg/actuation spray,suspension 1 spray INTRANASAL DAILY Rx Instructions: administer into each nostril cinnamon bark [Cinnamon] 500 mg capsule 1,000 mg PO DAILY Ultra CoQ10 75 mg capsule 75 mg PO DAILY red yeast rice 600 mg capsule 600 mg PO DAILY Rx Instructions: give with meal/snack atorvastatin 10 mg tablet 10 mg PO 4XW fexofenadine 180 mg tablet 180 mg PO DAILY magnesium oxide 500 mg capsule 500 mg PO DAILY isosorbide mononitrate 60 mg tablet extended release 24 hr 60 mg PO DAILY furosemide 40 mg tablet 60 mg PO DAILY Patient Comments: TAKE 1 AND 1/2 TABLET ONCE DAILY cholestyramine-aspartame [Prevalite] 4 gram powder in packet 1 ea PO DAILY Patient Comments: TAKE 1 PACKET BY MOUTH ONCE DAILY NEEDED. methocarbamol 500 mg tablet 250 - 500 mg PO TID PRN (Reason: muscle spasm) clobetasol 0.05 % cream 1 applic topical QDAY PRN triamcinolone acetonide 0.1 % cream 1 applic topical QDAY PRN acetaminophen 500 mg tablet 1,000 mg PO Q6H PRN H & H clear skin vitamins PO QDAY diphenhydramine HCl [Benadryl Allergy] 25 mg tablet 25 mg PO QHS PRN loperamide-simethicone 2-125 mg tablet 1 tab PO Q2H PRN Rx Instructions: do not exceed 4 tabs in 24 hrs ferrous sulfate 325 mg (65 mg iron) tablet 325 mg PO QDAY levothyroxine 125 MCG tablet 125 mcg PO DAILY Patient Comments: thyroid med xolbleyexzy-whjuhwuvr-ksu C-Mn 1 EACH capsule 1 ea PO DAILY Patient Comments: supplement aspirin 81 MG tablet 81 mg PO DAILY@0800 Qty: 0 0RF Patient Comments: okay to resume once finished with aspirin 325mg for 4 weeks fish oil-dha-epa 1 EACH capsule 1 ea PO DAILY Qty: 0 0RF Patient Comments: supplement naproxen 250 mg tablet 250 mg PO BID PRN Patient Comments: pain (DME) spacer See Rx Instructions .ROUTE .MEDSUPPLY Qty: 1 0RF Rx Instructions: As directed Primary Care Provider: Saige Dexter NP Referrals: Saige Dexter NP, [facility] [Primary Care Provider] - As soon as possible Activity Restrictions/Additional Instructions: Your ultrasound of your leg did not show any evidence of a deep venous thrombosis in your right lower leg. Follow-up with dermatology as well as your primary care provider regarding this petechial rash of your leg. Return to the emergency department with new or worsening symptoms. Print Language: [place] Disposition Disposition: Home, Self Care
--- NOTE | 2024-09-13 17:15 | US_ITS ---
PROCEDURE: VENOUS DUPLEX IMAG/LIMITED/UNI 09/13/2024 REASON FOR EXAM: F 74 y/o TECHNIQUE: VENOUS DUPLEX IMAG/LIMITED/UNI COMPARISON: None. FINDINGS: Normal compressibility and color Doppler flow of the bilateral lower extremity venous systems. US/Venous Duplex Imag/Limited/Uni IMPRESSION: No evidence of DVT. Reading Location: [id number]
== END 2024-09-13 19:07 | disposition home or self-care (01) ==
PROVIDERS: Emergency Provider Emergency Medicine; PCP Nurse Practitioner Primary Care; Visit Provider Emergency Medicine
DX: M79.89 Other specified soft tissue disorders (principal); R60.0 Localized edema; G47.33 Obstructive sleep apnea (adult) (pediatric); Z99.89 Dependence on other enabling machines and devices; E03.9 Hypothyroidism, unspecified; Z79.890 Hormone replacement therapy; Z79.82 Long term (current) use of aspirin; Z96.659 Presence of unspecified artificial knee joint; Z90.49 Acquired absence of other specified parts of digestive tract; R21 Rash and other nonspecific skin eruption
CPT/HCPCS: 93971; 99282